=== PATIENT | male | born 2000 | race African-American/Black ===

== ENCOUNTER → 2024-07-22 | Outpatient (CLI) | payer OTHER ==
[~2024-07-22] MED LIST: Albuterol 0.083% Neb Soln 2.5 MG/3 ML UD IH ONE; Methacholine Vial A (Clear Label Base-Cntrl) IH ONE; Methacholine Vial B (Red Label) 0.0625 MG/ML 3 ML VIAL.NEB IH ONE; Methacholine Vial C (Orange Label) 0.25 MG/ML 3 ML VIAL.NEB IH ONE; Methacholine Vial D (Yellow Label) 1 MG/ML 3 ML VIAL.NEB IH ONE; Methacholine Vial F (Blue Label) 16 MG/ML 3 ML VIAL.NEB IH ONE
== END ==
LOC: COL.CARD 09:53
DX: R06.02 Shortness of breath (principal)
CPT/HCPCS: J7674